=== PATIENT | female | born 1985 | race Caucasian/White ===

== ENCOUNTER 2023-10-21 18:11 | Emergency (ER) | payer BC, MEDICAID ==
[2023-10-21 20:01] VITALS: BP 105/56; PULSE 78
== END 2023-10-21 19:40 | disposition home or self-care (01) ==
LOC: FB.ED 18:11
DX: S93.402A Sprain of unspecified ligament of left ankle, initial encounter (principal); S93.401A Sprain of unspecified ligament of right ankle, initial encounter; E66.9 Obesity, unspecified; X50.1XXA Overexertion from prolonged static or awkward postures, initial encounter; Z79.899 Other long term (current) drug therapy
CPT/HCPCS: 73610-50; 99283